=== PATIENT | male | born 1950 | race Caucasian/White ===

== ENCOUNTER 2024-03-18 07:19 | Emergency (ER) | payer SELFPAY ==
[2024-03-18] VITALS (15 sets, daily range): BP systolic 89–102; BP diastolic 47–60; PULSE 68–107; RESP 12–22; TEMP 36.8; O2SAT 86–100
--- NOTE | ~2024-03-18 | XR_ITS ---
EXAMINATION: XR chest 1V DATE: 03/18/2024 08:35 INDICATION: Hypoxia. TECHNIQUE: A single frontal view of the chest was obtained. COMPARISON: Chest 2 views 04/11/2019 FINDINGS: There is mild atelectasis in the lower lung zones. No pleural effusion or pneumothorax. The heart size is normal. 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 There is a large hiatal hernia. IMPRESSION: 1. Mild atelectasis in the lower lung zones. 2. Large hiatal hernia. Reviewed, dictated and finalized at location E.
--- NOTE | ~2024-03-18 | CT_ITS ---
EXAMINATION: CT brain wo con DATE: 03/18/2024 08:32 INDICATION: Altered mental status. TECHNIQUE: Computed tomography (CT) of the head was performed without intravenous contrast. The mA wa s adjusted according to patient size. Iterative reconstruction technique was employed. The dose-lengt h product was 832.33 mGy-cm. COMPARISON: Neck CT 04/11/2019 FINDINGS: There is a right frontotemporoparietal subdural hematoma that is mixed hyperdense and hypod ense to benitez matter with maximum thickness of 12 mm. There is no acute ischemic infarct or abnormal m ass lesion. The ventricles are normal in size. There is 4 mm leftward midline shift. There are likely changes of ocular lens replacement surgeries. The paranasal sinuses are clear. The mastoid air cells are normal. IMPRESSION: 1. Acute versus subacute right frontotemporal parietal subdural hematoma. Reviewed, dictated and finalized at location E.
--- NOTE | 2024-03-18 07:38 | ECG_ITS ---
SEE SCANNED COPY FOR CONFIRMED REPORT MTDD
[2024-03-18] MEDS: SODIUM CHLORIDE 0.9% IV 1,000 ML 150 ML IV CONT (08:05)
[2024-03-18 08:08] LABS: Basophils Percent Auto 0.3 % (0.2-1.2); Eosinophils Percent Auto 0.2 % (0-4.4); Hematocrit 26.6 % (42.0-52.0); Immature Granulocyte Absolute 0.11 K/mm3 (0.00-0.031); Immature Granulocyte Percent A 0.8 % (0-0.5); Immature Platelet Fraction Pct 4.1 % (0.9-11.2); Lymphocytes Absolute Auto 0.59 K/mm3 (0.9-3.2); Lymphocytes Percent Auto 4.2 % (18.3-44.2); Mean Corpuscular HGB Conc 25.2 g/dl (32-36); Mean Corpuscular Hemoglobin 15.9 pg (26-34); Mean Platelet Volume 9.6 fl (7.4-10.4); Monocytes Absolute Auto 0.8 K/mm3 (0.1-0.6); Monocytes Percent Auto 5.7 % (2.6-8.5); Neutrophils Absolute Auto 12.5 K/mm3 (1.3-6.7); Neutrophils Percent Auto 88.8 % (45.5-73.1); Nucleated Red Blood Cells Perc 0.1 % (0.0-0.2); Platelet Count Result 298 k/mm3 (150-375); Red Blood Count 4.22 M/mm3 (4.6-6.20); Red Cell Distribution Width 22.8 % (11.5-14.5)
[2024-03-18 08:19] LABS: Alanine Aminotransferase 12 U/L (6-50); Albumin Level 3.6 g/dL (3.5-5.1); Alkaline Phosphatase 76 U/L (38-126); Anion Gap 6 mmol/L (4-12); Aspartate Amino Transferase 29 U/L (17-59); Bilirubin,Total 0.7 mg/dL (0.2-1.3); Blood Urea Nitrogen 13 mg/dL (9-20); Calcium 8.2 mg/dL (8.4-10.2); Carbon Dioxide 25 mmol/L (22-30); Chloride 100 mmol/L (98-107); Estimated CRCL calculation 69 ml/min; Estimated Glomerular Filt Rate > 60; Glucose 116 mg/dL (65-110); Magnesium 2.1 mg/dL (1.6-2.3); Potassium 4.6 mmol/L (3.4-5.0); Sodium 131 mmol/L (137-145)
[2024-03-18 08:30] LABS: NT Pro B Type Natriuretic Pept 1390 pg/mL (19.9-100); Troponin I < 0.012 ng/mL (0.000-0.034)
[2024-03-18 08:41] LABS: Hemoglobin 6.7 g/dL (14.0-18.0)
[2024-03-18 08:42] LABS: Anisocytosis 2+; Hypochromasia 2+; Influenza A QL RT-PCR Negative (Negative); Influenza B QL RT-PCR Negative (Negative); Ovalocytes 1+; Platelet Estimate Adequate (Adequate); RSV RNA, RT-PCR Negative (Negative); SARS-CoV-2 RNA PCR Negative (Negative); Schistocytes None Seen
[2024-03-18 08:42] LABS: Lactic Acid Reflex 2.7 mmol/L (0.7-2.0)
--- NOTE | 2024-03-18 08:55 | ED.FALL ---
HPI - Fall General Chief Complaint: Fall Stated Complaint: GLF Time Seen by Provider: 03/18/24 07:54 History of Present Illness HPI Narrative: Patient is a 73-year-old male who presents to the emergency department this morning after a that occurred at home. Patient states that he was in the kitchen trying to make coffee and got dizzy and fell. Patient landed forward and hit his head on the right side. Patient complains of mild pain along his right head. Family members but currently present at bedside states that they live with the patient and once he fell he called for help and they rushed to the kitchen. Patient did not lose any consciousness and remembers the fall. Family members state that shortly after the fall he was a little bit confused which was concerning for them that he may have suffered a concussion and decided to bring him to the emergency department for further evaluation. Patient has not seen a family doctor in over 5 years. He has a history of throat cancer 13 years ago. Patient states that he has been having dizzy on and off for the past 4 months. He is currently denying any additional symptoms and denies any focal weakness, numbness and no tingling. Related Data Allergies Allergy/AdvReac Type Severity Reaction Status Date / Time Penicillins Allergy Mild UNKNOWN Verified 04/11/19 10:11 Review of Systems Review of Systems: All systems are reviewed and are negative unless stated otherwise in the HPI. Exam Narrative: General: Alert, awake, afebrile, in no acute distress. HEENT: PERRL, no rhinorrhea, no post nasal drip, oropharynx clear. Neck: No midline tenderness to palpation over the cervical spine, no step-offs or deformities. Cardiovascular: Regular rate and rhythm, no murmurs, rubs or gallops, no peripheral edema. Respiratory: Clear to auscultation bilaterally, no tachypnea, no wheezing, no rhonchi, no rubs, no respiratory distress. Abdomen: Soft, nontender, nondistended, no rebound, no guarding, no peritoneal signs. Musculoskeletal: No joint swelling or deformity, normal muscle tone. Back: No midline thoracic or lumbar tenderness to palpation, no step-offs or deformities. Rectal: Exam performed with presence of a female nurse order expediter revealing good rectal tone, fecal occult blood test is negative. Skin: No rashes or petechia, no signs of infection. Psychiatric: Alert and oriented, normal behavior and judgment for situation. Neurological: Alert and oriented to person and place. Follows all commands. 5/5 motor strength in the bilateral upper and lower extremity, sensation intact in the bilateral upper and lower extremity, cranial nerves 2-12 grossly intact, speech is clear and fluent. Course Vital Signs Vital signs: Vital Signs Temperature 98.3 F 03/18/24 07:26 Pulse Rate 79 03/18/24 07:26 Respiratory Rate 18 03/18/24 07:26 Blood Pressure 93/59 L 03/18/24 07:26 Pulse Oximetry 86 L 03/18/24 07:26 Oxygen Delivery Room Air 03/18/24 07:26 Temperature 98.3 F 03/18/24 07:26 Pulse Rate 79 03/18/24 07:26 Respiratory Rate 18 03/18/24 07:26 Blood Pressure 93/59 L 03/18/24 07:26 Pulse Oximetry 86 L 03/18/24 07:26 Oxygen Delivery Room Air 03/18/24 07:26 MDM - Fall MDM Narrative Medical decision making narrative: The patient was evaluated by myself in the emergency department. History is obtained from patient who is an independent historian along with family members present at bedside and physical exam was performed. External medical records were reviewed at this time. IV was established and pertinent tests were ordered. Patient knows our current president is, knows that he is currently at [facility], is not able to recall the year. Patient was started on IV fluids with normal saline rate of 150 cc/hour. EKG was obtained which revealed sinus rhythm at a rate of 69 beats per minute. No ST changes, T wave inversions or evidence of acute ischemia. EKG was
[2024-03-18 10:08] LABS: Appearance Urine Clear (Clear); Bacteria Urine None Seen /hpf; Bilirubin Urine Negative (Negative); Blood Urine Negative (Negative); Color Urine Dark Yellow (Yellow); Glucose Urine UA Negative (Negative); Granular Casts Urine Present /lpf; Ketones Urine Trace mg/dL (Negative); Leukocyte Esterase Ur Negative LEU/UL (Negative); Mucus Urine Present /lpf; Nitrate Urine Negative (Negative); Protein Urine 2+ mg/dL (Negative); RBC Urine 0-2 /hpf (0-2); Specific Grav Ur 1.017 (1.001-1.035); Squamous Epithelial Cell Urine None Seen /hpf (Few); WBC Urine 0-5 /hpf (0-3); pH Urine >=9.0 (5.0-9.0)
[2024-03-18 10:35] LABS: Add Urine Microscopic? YES
[2024-03-18 11:23] LABS: Reflex Lactic Acid Yes or No Add Lactic
== END 2024-03-18 10:09 | disposition short-term general hospital (02) ==
PROVIDERS: Emergency Provider Emergency Medicine
DX: S06.5X0A Traumatic subdural hemorrhage without loss of consciousness, initial encounter (principal); D50.9 Iron deficiency anemia, unspecified; E87.20 Acidosis, unspecified; Z20.822 Contact with and (suspected) exposure to COVID-19; I49.1 Atrial premature depolarization; R94.31 Abnormal electrocardiogram [ECG] [EKG]; Z85.818 Personal history of malignant neoplasm of other sites of lip, oral cavity, and pharynx; W18.39XA Other fall on same level, initial encounter
CPT/HCPCS: 36415; 70450; 71045; 80053; 81001; 83605; 83735; 83880; 84484; 85025; 85055; 86850; 86900; 86901; 86920; 87637; 93005; 96360; 96361; 99291; J7030